=== PATIENT | male | born 1940 | race Caucasian/White ===

== ENCOUNTER 2017-07-26 02:39 | Outpatient (CLI) | payer MEDICARE, BC ==
[2017-07-26] MEDS ORDERED: Iopamidol 370 76% 100 ML VIAL ONE (09:36)
== END 2017-07-26 02:40 | disposition home or self-care (01) ==
LOC: BICCT 02:39
PROVIDERS: ATTEND Urology
DX: N28.9 Disorder of kidney and ureter, unspecified (principal)
CPT/HCPCS: 74170

== ENCOUNTER 2017-10-17 09:26 | Outpatient (CLI) | payer MEDICARE, BC | END 2017-10-17 09:27 | disposition home or self-care (01) | LOC: BICMRI 09:26 | PROVIDERS: ATTEND Neurological Surgery | DX: M48.061 Spinal stenosis, lumbar region without neurogenic claudication (principal); M47.896 Other spondylosis, lumbar region | CPT/HCPCS: 72148 ==

== ENCOUNTER 2017-12-07 16:07 | Outpatient (CLI) | payer MEDICARE, BC ==
--- NOTE | 2017-12-07 18:53 | RAD ---
RIGHT WRIST RADIOGRAPH FOUR VIEWS 12/07/17 PROVIDED CLINICAL HISTORY: Right wrist pain. FINDINGS: No comparisons. There is widening of the scapholunate interval. There is ulnar subluxation of the carpus, notably the lunate, with abnormal articulation with the ulnar aspects of the distal radius. Distal radial ulnar joint degenerative changes are seen. There is radiocarpal joint space narrowing. There is no evidenc e for fracture. Intra-articular bodies are suspected. 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 Orthopedic consultation is recommended. POS: OFF
== END 2017-12-07 16:08 | disposition home or self-care (01) ==
LOC: SCSRAD 16:07
PROVIDERS: ATTEND Nurse Practitioner Family
DX: M25.531 Pain in right wrist (principal); M19.031 Primary osteoarthritis, right wrist

== ENCOUNTER 2018-02-27 09:32 | Outpatient (CLI) | payer MEDICARE, BC ==
[2018-02-27 10:59] LABS: Anion Gap 13 mmol/L (10-20); BUN (Urea Nitrogen) 15 mg/dL (8.4-25.7); Calc. Creatinine Clearance 0 mL/min (70-130); Calcium 9.8 mg/dL (7.8-10.44); Carbon Dioxide 29 mmol/L (23-31); Chloride 97 mmol/L (98-107); Estimated GFR-MDRD 72; Glucose 97 mg/dL (83-110); Potassium 4.7 mmol/L (3.5-5.1); Sodium 134 mmol/L (136-145)
== END 2018-02-27 09:33 | disposition home or self-care (01) ==
LOC: LABBT 09:32
PROVIDERS: ATTEND Neurological Surgery
DX: Z01.818 Encounter for other preprocedural examination (principal); M48.061 Spinal stenosis, lumbar region without neurogenic claudication
CPT/HCPCS: 80048

== ENCOUNTER 2018-03-06 10:53 | Day surgery (SDC) | payer MEDICARE, BC ==
[2018-02-27 10:01] VITALS: BMI 32.8
[2018-03-06] MEDS ORDERED: CEFAZOLIN/Water 2 GM/20 ML SYRINGE ONE (11:25)
[2018-03-06] MEDS ORDERED: Fentanyl 100 MCG/2 ML VIAL ONE (12:54)
[2018-03-06] MEDS ORDERED: Bupivacaine HCl 0.5%/Epinephrine 1:200,000/PF 30 ml Vial ONE (13:10)
[2018-03-06] MEDS ORDERED: Thrombin 5000 UNITS/5 ML VIAL ONE (13:10)
[2018-03-06] MEDS ORDERED: PROPOFOL 200 MG/20 ML VIAL ONE (14:11)
[2018-03-06] MEDS ORDERED: Glycopyrrolate 0.2 MG/ML 5 ML SYRINGE ONE (14:11)
[2018-03-06] MEDS ORDERED: Lidocaine 1% PF 5 ML VIAL ONE (14:11)
[2018-03-06] MEDS ORDERED: PHENYLEPHRINE-NS 100 MCG/ML 10 ML SYRINGE ONE (14:11)
[2018-03-06] MEDS ORDERED: Labetalol 100 MG/20 ML MDV ONE (14:11)
[2018-03-06] MEDS ORDERED: Tamsulosin HCl 0.4 MG CAP ONE (14:58)
--- NOTE | 2018-03-06 16:06 | HP ---
HISTORY OF PRESENT ILLNESS: Mr. Osullivan is a 78-year-old man known to us from previous evaluation of l ow back pain who returns now in severe lumbar back pain with neurogenic claudication. He has been __ ___ therapy and has symptoms continued to progress to a point where he reports that he is starting t o suffer from daily depression From having to combat these symptoms so frequently. An MRI from [facility] that reveals moderate to severe spinal stenosis at L3-L4, hopes to treat this surgically. PAST MEDICAL HISTORY: Hypertension, hyperlipidemia, gastroesophageal reflux disease, anxiety, depres ian, hyperparathyroidism, osteoarthritis. PAST SURGICAL HISTORY: Knee replacement, parathyroidectomy, cataract surgery. CURRENT MEDICATIONS: Aspirin, simvastatin, clonidine, mirtazapine, hydrochlorothiazide, hyoscyamine, amlodipine. ALLERGIES: To LEVAQUIN, PAXIL and NITROFURANTOIN. PHYSICAL EXAMINATION: NEUROLOGIC: Patient is awake, alert and oriented x3. Gait is slow and antalgic. Lower extremity ex amination is normal. ASSESSMENT: Lumbar spinal stenosis. PLAN: Dr. Cuadra met the patient, reviewed imaging and advocated for an L3 through L4 decompression. He explained to the patient the risks, benefits, and alternatives to the procedure. The patient exp ressed understanding and would like to move forward with surgery as discussed. I do believe that the patient has mentally component and capable of making medical decisions for himself and we will move forward with surgery as planned. Valentino Briceno PA-C dictating for Dr. Cuadra.
--- NOTE | 2018-03-06 19:37 | OP ---
DATE OF PROCEDURE: 03/06/2018 SURGEON: Marty Cuadra M.D. ROOFING SUBCONTRACTOR: MAMADOU Khoury. INDICATION: Pain. DIAGNOSIS: Lumbar stenosis. PROCEDURE: L3-L4 lumbar decompression. ANESTHESIA: General. TECHNIQUE: The patient was brought into the operating room and placed under anesthesia. He was flip ped from a supine to prone position on the operating room table. A linear incision was planned over the L3-L4 segment. After prepping and draping and after an appropriate operative pause, the incision was created. The soft tissues were swept away from midline. Self-retaining retractors were placed in the wound for optimal exposure. After confirming the appropriate level with C-arm fluoroscopy, an Adson rongeur was used to remove the spinous process along the inferior aspect of L3 and the superio r aspect of L4. High-speed cutting drill bit as well as 2, 3 and 4-mm Kerrisons were then used to pe rform a laminectomy and laminectomy was extended to encompass the medial aspect of the facet joints. We did encounter significant degree of epidural lipomatosis which was carefully removed until the th ecal sac at the central part of the canal as well as lateral recesses were decompressed. The wound w as irrigated. Hemostasis was maintained throughout. The wound was then closed in anatomic layers an d a pressure dressing was applied. There were no known procedural complications.
== END 2018-03-06 19:30 | disposition home or self-care (01) ==
LOC: SDC 10:53
PROVIDERS: ATTEND Neurological Surgery
PROC: 01NB0ZZ Release Lumbar Nerve, Open Approach (ICD-10-PCS; principal; 2018-03-06)
DX: M48.062 Spinal stenosis, lumbar region with neurogenic claudication (principal); I10 Essential (primary) hypertension; E78.5 Hyperlipidemia, unspecified; K21.9 Gastro-esophageal reflux disease without esophagitis; F41.9 Anxiety disorder, unspecified; F32.9 Major depressive disorder, single episode, unspecified; M19.90 Unspecified osteoarthritis, unspecified site; E21.3 Hyperparathyroidism, unspecified; N40.0 Benign prostatic hyperplasia without lower urinary tract symptoms; Z87.891 Personal history of nicotine dependence; Z79.82 Long term (current) use of aspirin; Z79.899 Other long term (current) drug therapy; Z88.1 Allergy status to other antibiotic agents; Z88.8 Allergy status to other drugs, medicaments and biological substances
CPT/HCPCS: 76001; J0670; J2001; J2704; J3010

== ENCOUNTER 2018-07-25 09:29 | Outpatient (CLI) | payer MEDICARE, BC ==
--- NOTE | 2018-07-25 12:18 | MRI ---
MRI LUMBAR SPINE WITH AND WITHOUT CONTRAST: Date: 07/25/18 COMPARISON: 10/17/17. HISTORY: Lumbar stenosis. Back pain radiating down both lower extremities. Symptoms occur after walking. Legs begin to drag. COMPARISON: 10/17/17. FINDINGS: Stable heterogeneous marrow signal intensity of the lumbar vertebra suggesting senescent change. Lumb ar spine vertebral body height is maintained. No fracture. There is patchy STIR hyperintensity involv ing the end plates and lumbar vertebra likely due to a combination of Type I and Type II Modic change . Symmetric signal intensity of the psoas muscles. Bilateral extrarenal pelvises are noted. Conus medullaris terminates at the L1-L2 disc space level. On the postcontrast images, there is no abnormal enhancement with regards to the vertebral bodies. Th ere is no abnormal enhancement within the thecal sac, including the cauda equina and conus medullaris . There is enhancing scar tissue at the laminectomy defect site at L4-L5. T12-L1: No significant central canal stenosis. Neural foramina are patent. L1-L2: Generalized disc bulge with minimal ligamentum flavum thickening and facet hypertrophy. There is no significant central canal stenosis. Mild bilateral neural foraminal narrowing. L2-L3: Moderate loss of disc space height. There is disc desiccation. No significant posterior disc abnormality. There is bilateral ligamentum flavum thickening and facet hypertrophy. No significant ce ntral canal stenosis. Right neural foramen is patent. Moderate left foraminal narrowing due to disc m aterial. L3-L4: Stable desiccation with mild loss of disc space height. Generalized disc bulge, ligamentum fl avum thickening, and facet hypertrophy result in mild central canal stenosis. Moderate right and left foraminal narrowing. L4-L5: There is desiccation with moderate loss of disc space height. No significant posterior disc a bnormality. There is ligamentum flavum thickening and facet hypertrophy. No significant central canal stenosis. Moderate right and mild left neural foraminal narrowing. Posterior decompressive laminecto my defect is identified. Enhancing scar tissue is noted. L5-S1: No significant posterior disc abnormality. There is bilateral facet hypertrophy. No significa nt central canal stenosis. Moderate bilateral neural foraminal narrowing. IMPRESSION: 1. Interval laminectomy change at the L4-L5 level. No significant central canal stenosis at this lev el. 2. Varying degrees of central canal stenosis and foraminal narrowing as detailed above. POS: JAKE
[2018-07-25] MEDS ORDERED: Gadobenate Dimeglumine 529 MG/1 ML (20ML VIAL) ONE (13:45)
== END 2018-07-25 09:30 | disposition home or self-care (01) ==
LOC: BICMRI 09:29
PROVIDERS: ATTEND Neurological Surgery
DX: M48.061 Spinal stenosis, lumbar region without neurogenic claudication (principal); M48.07 Spinal stenosis, lumbosacral region; Z98.890 Other specified postprocedural states
CPT/HCPCS: 72158; 82565; A9579

== ENCOUNTER 2020-05-16 13:42 | Outpatient (CLI) | payer MEDICARE, BC ==
--- NOTE | 2020-05-16 14:09 | CT ---
CT pulmonary lung scan without IV contrast INDICATION: Lung cancer screening protocol; former smoker; quit 4 years ago; smokes proximately 1.5 p acks per day for 50 years with a history of COPD COMPARISON: None FINDINGS: LUNGS: Nodules\mass: There are reticular nodular opacities seen within the periphery of the left lower lobe as well as portions of the anterior aspect of the right upper lobe. No additional suspicious pulmonary nodularity is evident. There is scattered centrilobular and paraseptal emphysema. Emphysema: There is scattered emphysema Additional findings: There are coronary artery and thoracic aortic calcifications. Mediastinum: There are calcified lymph nodes within the left hilar region. Upper abdomen: There are calcified lymph nodes in the spleen. Visualized adrenal glands are normal ap pearing. There are calcified granuloma within the liver. Osseous structures: No acute abnormality.. IMPRESSION: Lung-RADS Category 3: Probably [id number] low-dose lung cancer CT in 6-8 weeks is recommended to document resolution the reticular nodular opacities within the left lower lobe and right upper lobe. Findings are suspicious for bronchiolitis. Category S: Coronary artery and thoracic aortic calcifications; emphysema; findings of prior granulom atous disease Category C: Not applicable.
== END 2020-05-16 13:43 | disposition home or self-care (01) ==
LOC: BICCT 13:42
PROVIDERS: ATTEND Family Medicine
DX: Z12.2 Encounter for screening for malignant neoplasm of respiratory organs (principal); I70.0 Atherosclerosis of aorta; I25.10 Atherosclerotic heart disease of native coronary artery without angina pectoris; J43.9 Emphysema, unspecified; Z87.891 Personal history of nicotine dependence
CPT/HCPCS: G0297

== ENCOUNTER 2020-07-08 11:51 | Outpatient (CLI) | payer MEDICARE, BC ==
[2020-07-09 05:47] LABS: SARS-CoV-2 MS2 Positive; SARS-CoV-2 N Gene Negative; SARS-CoV-2 S Gene Negative; SARS-CoV-2 by NAA Not Detected (NotDetected); SARS-CoV-2 orf1ab Negative
== END 2020-07-08 11:52 | disposition home or self-care (01) ==
LOC: LABBT 11:51
PROVIDERS: ATTEND Internal Medicine
DX: R13.10 Dysphagia, unspecified (principal); Z20.828 Contact with and (suspected) exposure to other viral communicable diseases
CPT/HCPCS: 87635; U0003

== ENCOUNTER 2020-07-09 14:28 | Outpatient (CLI) | payer MEDICARE, BC ==
--- NOTE | 2020-07-09 15:16 | CT ---
CT pulmonary lung scan without IV contrast INDICATION: Lung cancer screening protocol; former smoker quit 4 years ago; history of 1.5 packs per day for 50 years with history of COPD COMPARISON: Prior CT pulmonary lung scan dated May 16, 2020. FINDINGS: LUNGS: Nodules\mass: The small subpleural nodularity involving the anterior segment of the right upper lobe on images 30 through 39 of series 3 are largely stable. The reticular nodularity seen in a tree-in-bud pattern within the posterior and posterior lateral left lower lobe have near completely r esolved. Small area of tree-in-bud nodularity remains within the posterior lateral left lower lobe on image 65 of series 3. No new suspicious pulmonary nodule is identified. Emphysema: There is scattered centrilobular and paraseptal emphysema. Additional findings: None. Mediastinum: No pathologically enlarged lymph nodes are evident. There are severe vascular calcificat ions seen involving the visualized vasculature. There are calcified lymph nodes within the left hilar region. Upper abdomen: There are calcified granuloma within the liver and spleen. Adrenal glands appear withi n normal limits. Osseous structures: No acute abnormality.. There is scattered degenerative and osteoarthritic change present. IMPRESSION: Lung-RADS Category 2: Benign- Continue annual screening with LDCT in 12 months Category S: None. Category C: Not applicable.
== END 2020-07-09 14:29 | disposition home or self-care (01) ==
LOC: BICCT 14:28
PROVIDERS: ATTEND Family Medicine
DX: Z12.2 Encounter for screening for malignant neoplasm of respiratory organs (principal); Z87.891 Personal history of nicotine dependence
CPT/HCPCS: G0297

== ENCOUNTER 2020-07-11 10:46 | Outpatient (CLI) | payer MEDICARE, BC ==
--- NOTE | 2020-07-11 16:01 | RAD ---
Modified barium swallow HISTORY: Dysphagia. Feeding difficulties. FINDINGS: Exam was performed by speech pathology with multiple consistencies. Video review is availab le and demonstrates early spill of contrast to the level of the piriform sinuses with nectar consistency. Good initiation of swallowing with puree. Moderate degree of penetration seen within liquids swallowe d and neck flexed. Deep penetration without clearing with neck in neutral position. No aspiration directly visualized. No apparent difficulty with swallowing a pill. No evidence of obstruction. No si gnificant residua. The esophagus below the level of the hypopharynx was not evaluated. Please see separate detailed repo rt from speech pathology.
== END 2020-07-11 10:47 | disposition home or self-care (01) ==
PROVIDERS: ATTEND Internal Medicine
DX: R63.3 Feeding difficulties (principal); R13.10 Dysphagia, unspecified
CPT/HCPCS: 74230

== ENCOUNTER 2021-08-04 13:00 | Outpatient (CLI) | payer MEDICARE, BC, OTHER | END 2021-08-04 13:01 | disposition home or self-care (01) | LOC: BICCT 13:00 | PROVIDERS: ATTEND Family Medicine | DX: Z12.2 Encounter for screening for malignant neoplasm of respiratory organs (principal); J44.1 Chronic obstructive pulmonary disease with (acute) exacerbation; Z87.891 Personal history of nicotine dependence | CPT/HCPCS: 71271 ==

== ENCOUNTER 2022-06-02 13:02 | Outpatient (CLI) | payer MEDICARE, BC, OTHER | END 2022-06-02 13:03 | disposition home or self-care (01) | LOC: MRI 13:02 | PROVIDERS: ATTEND Anesthesiology Pain Medicine | DX: M48.062 Spinal stenosis, lumbar region with neurogenic claudication (principal); M47.815 Spondylosis without myelopathy or radiculopathy, thoracolumbar region; M51.35 Other intervertebral disc degeneration, thoracolumbar region; M25.78 Osteophyte, vertebrae; M47.816 Spondylosis without myelopathy or radiculopathy, lumbar region; M24.28 Disorder of ligament, vertebrae; M51.36 Other intervertebral disc degeneration, lumbar region; M51.37 Other intervertebral disc degeneration, lumbosacral region; M43.17 Spondylolisthesis, lumbosacral region; M47.817 Spondylosis without myelopathy or radiculopathy, lumbosacral region; M48.07 Spinal stenosis, lumbosacral region | CPT/HCPCS: 72148 ==

== ENCOUNTER 2022-08-04 14:28 | Outpatient (CLI) | payer MEDICARE, BC, OTHER | END 2022-08-04 14:29 | disposition home or self-care (01) | LOC: BICCT 14:28 | PROVIDERS: ATTEND Family Medicine | DX: J43.2 Centrilobular emphysema (principal); J18.8 Other pneumonia, unspecified organism; Z87.891 Personal history of nicotine dependence | CPT/HCPCS: 71271 ==

== ENCOUNTER 2024-07-17 13:24 | Outpatient (CLI) | payer MEDICARE, OTHER | END 2024-07-17 13:25 | disposition home or self-care (01) | LOC: BICRAD 13:24 | PROVIDERS: ATTEND Family Medicine | DX: M25.511 Pain in right shoulder (principal); M75.101 Unspecified rotator cuff tear or rupture of right shoulder, not specified as traumatic; M16.12 Unilateral primary osteoarthritis, left hip; W19.XXXA Unspecified fall, initial encounter ==